=== PATIENT | female | born 1965 | race Native Hawaiian/Other Pacific Islander ===

== ENCOUNTER 2017-01-24 17:25 | Emergency (ER) | payer OTHER ==
[2017-01-24 17:26] VITALS: BMI 29.2
[2017-01-24 17:34] VITALS: TEMP 98.6; O2SAT 99
--- NOTE | 2017-01-24 18:30 | C.PDOC ---
History Of Present Illness 51 year old female with Hx of HTN presents to the ED c/o dizziness. History was obtained through a video health sciences program coordinator due to the fact that the patient only spoke [place]. Patient states she has recurrent episodes of dizziness but today was worse she was not able to walk, sit up or eat. Patient reports having severe belching episodes, she was seen by Dr. Burton who did a full work up including US but was unable to make a diagnosis. Patient presents today because she is afraid because her family is away in [facility] and she is alone. Patient reports being compliant with her HTN medications. Patient denies CP, palpitations, fever, nausea, vomit, headache, blurry vision. Time Seen by Provider: 01/24/17 18:01 Chief Complaint (Nursing): GI Problem History Per: Patient History/Exam Limitations: language barrier Onset/Duration Of Symptoms: Days Current Symptoms Are (Timing): Still Present Severity: None Radiation Of Pain To:: None Recent travel outside of the [place]: No Additional History Per: Patient Abnormal Vaginal Bleeding: No Past Medical History Reviewed: Historical Data, Nursing Documentation, Vital Signs Vital Signs: Last Vital Signs Temp 98.6 F 01/24/17 17:33 Pulse 73 01/24/17 17:33 Resp 18 01/24/17 17:33 BP 148/85 01/24/17 17:33 Pulse Ox 99 01/24/17 18:32 - Medical History PMH: HTN Surgical History: No Surg Hx Family History: States: Unknown Family Hx - Social History Hx Alcohol Use: No Hx Substance Use: No - Immunization History Hx Tetanus Toxoid Vaccination: Yes Hx Influenza Vaccination: No Hx Pneumococcal Vaccination: Yes Review Of Systems Constitutional: Negative for: Fever, Chills Eyes: Negative for: Vision Change Cardiovascular: Negative for: Chest Pain, Palpitations Respiratory: Negative for: Cough, Shortness of Breath Gastrointestinal: Positive for: Abdominal Pain. Negative for: Nausea, Vomiting Skin: Negative for: Rash Neurological: Positive for: Dizziness. Negative for: Weakness, Numbness, Headache Physical Exam - Physical Exam Appears: Non-toxic, No Acute Distress Skin: Normal Color, Warm, Dry Head: Atraumatic, Normacephalic Nose: No Discharge Oral Mucosa: Moist Neck: Normal ROM, Supple Chest: Symmetrical Cardiovascular: Rhythm Regular, No Murmur Respiratory: Normal Breath Sounds, No Rales, No Rhonchi, No Wheezing Gastrointestinal/Abdominal: Soft, No Tenderness, No Distention, No Rebound Extremity: Normal ROM, No Pedal Edema, No Calf Tenderness, No Swelling Neurological/Psych: Oriented x3, Normal Speech, Normal Cognition Gait: Steady ED Course And Treatment - Laboratory Results Result Diagrams: 01/24/17 18:31 01/24/17 18:31 Lab Interpretation: Normal O2 Sat by Pulse Oximetry: 99 (On RA) Pulse Ox Interpretation: Normal Reevaluation Time: 21:35 Reassessment Condition: Improved (Patient is now comfortable and asymptomatic in the ED.) Medical Decision Making Medical Decision Making: Impression : Dizziness, belching episodes Plan: * CT head * Blood work Disposition Counseled Patient/Family Regarding: Studies Performed, Diagnosis - Disposition Disposition: HOME/ ROUTINE Disposition Time: 21:38 Condition: STABLE Instructions: Dizziness (ED) - Clinical Impression Clinical Impression: Dizziness - Scribe Statement The provider has reviewed the documentation as recorded by the Scribe Troy Roldan All medical record entries made by the Scribe were at my direction and personally dictated by me. I have reviewed the chart and agree that the record accurately reflects my personal performance of the history, physical exam, medical decision making, and the department course for this patient. I have also personally directed, reviewed, and agree with the discharge instructions and disposition.
[2017-01-24 18:38] LABS: BASO # 0.1 K/uL (0.0-0.2); BASO % 0.7 % (0.0-2.0); EOS # 0.1 K/uL (0.0-0.7); EOS % 0.7 % (0.0-4.0); HEMATOCRIT 41.3 % (34.0-47.0); LYMPH # 1.1 K/uL (1.0-4.3); LYMPH % 12.4 % (20.0-40.0); MEAN CELL VOLUME 86.7 fL (81.0-99.0); MEAN CORPUSCULAR HEMOGLOBIN 28.4 pg (27.0-31.0); MEAN CORPUSCULAR HGB CONC 32.8 g/dL (33.0-37.0); MONO # 0.5 K/uL (0.0-0.8); RED CELL DISTRIBUTION WIDTH 14.2 % (11.5-14.5)
[2017-01-24 18:50] LABS: ALB/GLOB RATIO 1.4 (1.0-2.1); ALKALINE PHOSPHATASE 91 U/L (38-126); ALT/SGPT 57 U/L (9-52); AST/SGOT 32 U/L (14-36); BILIRUBIN,TOTAL 0.4 mg/dL (0.2-1.3); BLOOD UREA NITROGEN 14 mg/dL (7-17); CALCIUM 8.5 mg/dl (8.6-10.4); CARBON DIOXIDE 24 mmol/L (22-30); CHLORIDE 104 mmol/L (98-107); GFR AFRICAN-AMERICAN > 60; GLUCOSE,RANDOM 95 mg/dL (65-105); POTASSIUM 4.1 mmol/L (3.6-5.2); SODIUM 138 mmol/L (132-148); TOTAL PROTEIN 7.5 g/dL (6.3-8.3)
[2017-01-24 21:39] VITALS: BP 165/87; PULSE 77; RESP 16
--- NOTE | 2017-01-25 10:43 | CT ---
[facility] PROCEDURE: CT HEAD WITHOUT CONTRAST. HISTORY: dizziness COMPARISON: None available. TECHNIQUE: Axial computed tomography images were obtained through the head/brain without intravenous contrast. Radiation dose: Total exam DLP = 762.23 mGy-cm. This CT exam was performed using one or more of the following dose reduction techniques: Automated exposure control, adjustment of the mA and/or kV according to patient size, and/or use of iterative reconstruction technique. FINDINGS: HEMORRHAGE: No intracranial hemorrhage. BRAIN: No mass effect or edema. 2 mm right basal ganglia lacunar infarct versus dilated perivascular space. The barnett-white matter differentiation appears otherwise intact white matter hypodensities, which are nonspecific, but often seen with chronic microvascular ischemic disease. Please note that MRI with diffusion imaging is more sensitive in the detection of acute ischemic event. VENTRICLES: No hydrocephalus. CALVARIUM: Unremarkable. PARANASAL SINUSES: Unremarkable as visualized. No significant inflammatory changes. MASTOID AIR CELLS: Small opacification of bilateral mastoid air cells. OTHER FINDINGS: Partial opacification of bilateral external auditory canals, likely cerumen. IMPRESSION: 2 mm probable right basal ganglia lacunar infarct versus dilated perivascular space. Small opacification of bilateral mastoid air cells. Preliminary impression was provided by virtual radiologic. Study marked for PA review.
== END 2017-01-24 21:41 | disposition home or self-care (01) ==
LOC: C.ER 17:25
DX: R42 Dizziness and giddiness (principal); I10 Essential (primary) hypertension